=== PATIENT | female | born 1935 | race Hispanic/Latino ===

== ENCOUNTER 2017-07-06 08:14 | Outpatient (CLI) | payer MEDICARE ==
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
== END 2017-07-06 08:15 | disposition home or self-care (01) ==
LOC: NM 08:14
PROVIDERS: ATTEND Internal Medicine Hematology & Oncology
DX: C50.412 Malignant neoplasm of upper-outer quadrant of left female breast (principal); S22.43XD Multiple fractures of ribs, bilateral, subsequent encounter for fracture with routine healing; E83.52 Hypercalcemia; V89.2XXD Person injured in unspecified motor-vehicle accident, traffic, subsequent encounter
CPT/HCPCS: 78306; A9503

== ENCOUNTER 2019-06-18 08:18 | Outpatient (CLI) | payer MEDICARE ==
[2019-06-18 09:19] LABS: Blood Urea Nitrogen 15 mg/dL (7-17)
--- NOTE | 2019-06-18 12:23 | Cat Scan Report ---
CT abdomen and pelvis wo/w con INDICATION: Abnormal findings on ultrasound. TECHNIQUE: All CT scans at this location are performed using the following dose modulation technique: Automated exposure control. Helical slices were obtained through the abdomen prior to and following the adminis tration of intravenous contrast. 100 cc of Omnipaque 300 is administered. COMPARISON: None available. The abnormal ultrasound images and findings are not available for comparison FINDINGS: Abdomen: There is a 5 mm nodule in the right middle lobe, image 14 series 3. There is a 3 mm nodule i n the left lower lobe, image 5 series 3. There is a 4 mm nodule in the right lower lobe, image 8 seri es 3. Calcified granulomata are noted in the liver and spleen. No mass lesions are seen within the liver. There is a 4 mm hypodensity in the inferior aspect of the spleen. This is too small to characterize b ut is likely benign. There is a 9 mm hypodensity in the body pancreas. There is 8 mm hypodensity in the neck of the pancre as. Pancreatic duct is not dilated. The adrenal glands are unremarkable. There is a small exophytic cyst arising from the upper pole the right kidney. There is a tiny hypodensity in the lower pole of the left kidney which is too small to characterize but is likely a cyst. Atherosclerotic calcifications are noted aorta and arteries. Pelvis: There is fluid in the vagina. Vascular calcifications are noted. There is sigmoid diverticulo sis. There is no CT evidence of diverticulitis. The appendix is unremarkable. On review of bone windows, no acute osseous abnormalities are seen. IMPRESSION: 1. There are 2 small hypodensities in the pancreas did not appear to enhance significantly following contrast administration. This could represent pancreatic cysts. These could represent branch type int raductal mucinous neoplasm of the pancreas. 2. Tiny hypodensity in the spleen is likely benign. 3. There are multiple calcified granulomata in the liver and spleen. 4. There is atherosclerotic disease. 5. There are several tiny nodules in the lung bases measuring up to 5 mm. INCIDENTAL PULMONARY NODULE RECOMMENDATION Recommendation: Solid Nodule size <6 mm -- Single or Multiple - Low Risk Patient: No routine follow-up - High Risk Patient: Optional CT at 12 months Note These recommendations do not apply to lung cancer screening, patients with immunosuppression, o r patients with known primary cancer. Note Newly detected indeterminate nodule in persons 35 years of age or older. Persons under the age of 35 should not receive follow-up unless there is a known primary cancer. Low Risk Patient -- minimal or absent history of smoking and of other known risk factors. High Risk Patient -- history of smoking or of other known risk factors. Nodule dimensions are average of long and short axes, rounded to the nearest millimeter. Based on 2017 [employer] Guidelines found in Radiology 2017 284:228-243. [email or web address] Signer Name: Roshan Greene MD Signed: 06/18/2019 12:19 PM Workstation Name: [id number]
== END 2019-06-18 08:19 | disposition home or self-care (01) ==
LOC: CT 08:18
PROVIDERS: ATTEND Nurse Practitioner Family
DX: I70.90 Unspecified atherosclerosis (principal); R93.89 Abnormal findings on diagnostic imaging of other specified body structures; R91.1 Solitary pulmonary nodule
CPT/HCPCS: 36415; 74170; 82565; 84520; Q9967

== ENCOUNTER 2021-08-10 10:50 | Outpatient (CLI) | payer MEDICARE ==
--- NOTE | 2021-08-10 11:46 | Mammography Report ---
DIGITAL SCREENING MAMMOGRAM WITH CAD, 08/10/2021 CLINICAL INFORMATION / INDICATION: Routine screening mammography. SCREENING MAMMO Z12.31 TECHNIQUE: Digital bilateral 2D mammography was obtained in the craniocaudal and mediolateral obliqu e projections. This examination was interpreted with the benefit of Computer-Aided Detection analysis . COMPARISON: 03/04/2020. FINDINGS: Breast Density: There are scattered areas of fibroglandular density. No dominant mass, suspicious calcifications, or architectural distortion in either breast. Bilateral benign-appearing nodularity and calcification is stable. IMPRESSION: No mammographic evidence of malignancy. Follow up recommendation: Routine yearly BI-RADS Category 2: BENIGN. A "normal" or negative report should not discourage follow up or biopsy of a clinically significant f inding. A written summary of these findings will be mailed to the patient. The patient will be entered into a mammography reporting system which will generate a reminder letter for the patient's next appointmen t at the appropriate interval. The [employer] recommends yearly mammograms starting at age 40 and continuing as l elia as a woman is in good health. Breast MRI is recommended for women with an approximate 20-25% or greater lifetime risk of breast cancer, including women with a strong family history of breast or ova daniela cancer or who have been treated for Hodgkin's disease. Signer Name: Tee Montano MD Signed: 08/10/2021 11:41 AM Workstation Name: [id number]
== END 2021-08-10 10:51 | disposition home or self-care (01) ==
LOC: SPVWC 10:50
PROVIDERS: ATTEND Internal Medicine Hematology & Oncology
DX: Z12.31 Encounter for screening mammogram for malignant neoplasm of breast (principal); N64.89 Other specified disorders of breast
CPT/HCPCS: 77067